=== PATIENT | female | born 2000 | race Caucasian/White ===

== ENCOUNTER 2024-01-27 09:59 | Emergency (ER) | payer MEDICAID ==
[~2024-01-27] VITALS: Ht 154.9 cm; Wt 57.2 kg
[2024-01-27 10:08] VITALS: O2SAT 100
[2024-01-27] MEDS: ONDANSETRON 4MG ODT PO STA (12:40)
[2024-01-27] MEDS: MAGNESIUM/ALUMINUM HYDROXIDE/SIMETHICONE 30ML UDC PO STA (12:40)
[2024-01-27 13:08] LABS: BASOPHILS % 0.5 % (0.0-2.0); HEMATOCRIT. 40.6 % (36.0-48.0); HEMOGLOBIN. 14.2 g/dL (12.0-16.0); LYMPHOCYTES % 9.4 % (20.0-50.0); MEAN CORPUSCULAR HEMOGLOBIN 30.7 pg (28.0-32.0); MEAN CORPUSCULAR HGB CONC 34.9 g/dL (31.0-37.0); MEAN CORPUSCULAR VOLUME 88.1 fL (81.0-99.0); MEAN PLATELET VOLUME 9.8 fl (7.4-10.4); MONOCYTES % 1.4 % (2.0-8.0); NEUTROPHILS % 88.7 % (40.0-76.0); PLATELET 143 x1000/uL (130-400); RED BLOOD CELL COUNT 4.61 mill/uL (4.2-5.4); RED CELL DISTRIBUTION WIDTH 13.5 % (11.6-14.6); WHITE BLOOD COUNT 8.7 x1000/uL (4.5-11.0)
[2024-01-27 13:20] LABS: CHLORIDE 103 mEq/L (98-107); SODIUM 136 mEq/L (136-145)
[2024-01-27 13:21] LABS: CALCIUM 8.9 mg/dL (8.7-10.4); CARBON DIOXIDE 26 mEq/L (21-32)
[2024-01-27 13:26] LABS: CREATININE 0.7 mg/dL (0.6-1.0); GLUCOSE 121 mg/dL (70-105); UREA NITROGEN BLOOD 8 mg/dL (9-23)
[2024-01-27 13:28] LABS: HCG SCREEN NEGATIVE
[2024-01-27] MEDS ORDERED: AMOX-494 MT (14:12)
[2024-01-27] MEDS ORDERED: IBUP-2028 MT (14:12)
[2024-01-27] MEDS ORDERED: DOCU-138 MT (14:12)
[2024-01-27 14:41] LABS: CLARITY URINE CLOUDY (CLEAR); COLOR URINE DARK YELLOW (YELLOW); GLUCOSE URINE NEGATIVE (NEGATIVE); KETONES URINE NEGATIVE (NEGATIVE); LEUKOCYTE ESTERASE URINE 1+ (NEGATIVE); NITRITE URINE POSITIVE (NEGATIVE); OCCULT BLOOD URINE NEGATIVE (NEGATIVE); PH URINE 5.5 (4.5-8.0); PROTEIN URINE 2+ (NEGATIVE); SPECIFIC GRAVITY URINE 1.052 (1.005-1.030)
[2024-01-27] MEDS ORDERED: NITR100C MT (14:51)
[2024-01-27] MEDS ORDERED: AMOX1TAB16 MT (15:00)
[2024-01-27 15:28] LABS: MUCUS URINE 3+ /lpf (< = 2+); SQUAMOUS EPITHELIAL CELL URINE 3+ /lpf (RARE/1+)
[2024-01-27 15:30] VITALS: BP 121/78; PULSE 74; RESP 16; TEMP 98.4
[2024-01-27 15:30] LABS: CALCIUM OXALATE CRYSTALS URINE 1+ /lpf
[2024-01-27 15:31] LABS: BACTERIA URINE 2+
== END 2024-01-27 15:30 | disposition home or self-care (01) ==
LOC: ER 09:59
DX: N39.0 Urinary tract infection, site not specified (principal); H66.91 Otitis media, unspecified, right ear; K59.00 Constipation, unspecified
CPT/HCPCS: 36415; 80048; 81003; 84703; 85025; 99283